=== PATIENT | male | born 1950 | race Caucasian/White ===

== ENCOUNTER 2019-08-27 13:36 | Inpatient (IN) ==
[2019-08-27] MEDS ORDERED: SODIUM CHLORIDE 0.9% 1000ML 1,000 ML IV SCH (15:00)
[2019-08-27 15:42] LABS: Basophils # (auto) 0.02 K/uL (0-0.2); Basophils % (auto) 0.1 %; Hematocrit (blood only) 47.9 % (42-52); Hemoglobin 16.2 g/dL (14.0-18.0); Immature Granulocytes # (auto) 0.11 K/uL (0.00-0.02); Immature Granulocytes % (auto) 0.5 %; Lymphocytes # (auto) 0.86 K/uL (1.2-3.4); Lymphocytes % (auto) 4.1 %; Mean Corpuscular Hemoglobin 32.9 pg (25-34); Mean Corpuscular Hgb Conc 33.8 g/dL (32-36); Mean Corpuscular Volume 97.4 fL (80-100); Mean Platelet Volume 10.3 fL (7.4-10.4); Monocytes # (auto) 1.04 K/uL (0.11-0.59); Neutrophils # (auto) 18.88 K/uL (1.4-6.5); Neutrophils % (auto) 90.3 %; Platelet Count 192 K/uL (130-400); RDW Coefficient of Variation 14.2 % (11.5-14.5); RDW Standard Deviation 50.5 fL (36.4-46.3); Red Blood Count 4.92 M/uL (4.7-6.1); White Blood Count 20.91 K/uL (4.8-10.8)
--- NOTE | 2019-08-27 15:46 | Emergency Department Note ---
Entered by Onelia Velarde acting as a scribe for Margarito Yousif DO History of Present Illness General Chief complaint: Abdominal Pain Stated complaint: ABDOMINAL PAIN, PERHAPS GALL BLADDER, PCP REF Source: patient History of Present Illness Onset (ago): day(s) 1 (yesterday 399) Location: abdomen Pain Consistency: + other (worsening) Maximum Pain Intensity: 7 Quality: + other (abdominal pain ) Associated symptoms: + fever/chills, + nausea/vomiting and + other (+high blood count; -back pain ) The patient is a 69 year old male, with past medical history of hypertension and hyperlipidemia, who presents to the Emergency Room with complaints of worsening abdominal pain since 399 yesterday morning. The patient states the pain began with generalized abdominal pain that felt like hunger cramps. The following morning, the patient states he had toast with margarine with orange juice and coffee. The patient states he had a normal bowel movement, but he states he had an episode of nausea and one instance of dry heaving an hour after eating breakfast. Later on in the day, the patient states the pain became much more localized to his right upper quadrant. Over night, the patient states the pain in his right upper quadrant worsened. The patient reports he saw his PCP regarding symptoms this morning, where the patient states his blood count was twice the normal limit and he was referred to the ED. The patient also notes a fever, but he denies back pain. The patient notes family history of gall bladder issues. Home Medications Home Medications Medication Instructions Recorded Confirmed Type ASPIRIN 325 mg PO q3 hr PRN #0 08/16/16 History ATORVASTATIN (LIPITOR) 20 mg PO DAILY #0 tab 08/16/16 History Calcium Carbonate (Tums) 2 dose PO DAILY #0 08/16/16 History Flurazepam HCl 15 mg PO HS PRN #0 08/16/16 History LOSARTAN POTASSIUM (COZAAR) 100 mg PO DAILY #0 tab 08/16/16 History MECLIZINE HCL 1 tab PO TID PRN #0 tab 08/16/16 History MULTIPLE VITAMIN (MULTIVITAMINS) 1 tab PO DAILY #0 08/16/16 History Naproxen (Naprosyn) 500 mg PO BID #0 tab 08/16/16 History Pantoprazole (Protonix) 40 mg PO DAILY #0 10/03/16 History Allergies Allergy/AdvReac Type Severity Reaction Status Date / Time No Known Allergies Allergy Unverified 09/12/15 16:42 Past Med/Surg History Medical History Hyperlipidemia Hypertension Family History Other No significant family history Social History Preferred Language: Hungarian Feels Safe at Home: Yes Smoking Status: Never smoker Review of Systems See HPI for pertinent positives & negatives. and A total of 10 systems reviewed and were otherwise negative Physical Exam Vital Signs Vital Signs - 24 hr 08/27/19 13:57 08/27/19 15:36 08/27/19 16:00 Temperature 38.2 C H Temperature Source Oral Sepsis Recent Fever Within 48 Hours Yes Sepsis New/Unexplained Change in Mental Status No Sepsis Action Taken by Nursing No Action Required Pulse Rate 121 H Pulse Rate [Apical] 100 H Pulse Rhythm Regular Pulse Rhythm [Apical] Regular Pulse Strength Normal Pulse Strength [Apical] Normal Respiratory Rate 18 18 Respiratory Effort / Characteristics Non-Labored Spontaneous Non-Labored Spontaneous Respiratory Depth Normal Normal Respiratory Pattern Regular Regular Blood Pressure 158/85 H Blood Pressure [Right Arm] 149/81 H Blood Pressure Mean 109 Blood Pressure Mean [Right Arm] 103 Blood Pressure Position Sitting Blood Pressure Position [Right Arm] Lying Pulse Oximetry 98 96 96 Oxygen Delivery Method Room Air Room Air Room Air GENERAL: Patient is awake and alert. He is somewhat anxious appearing and appears to be uncomfortable. EYES: The conjunctivae are clear. The pupils are round and reactive. EARS, NOSE, MOUTH AND THROAT: The nose is without any evidence of any deformity. Mucous membranes are moist tongue is midline NECK: The neck is nontender and supple. RESPIRATORY: Normal respiratory effort is noted there is no evidence of wheezing rhonchi or rales CARDIOVASCULAR: Tachycardic rate with regular rhythm was noted. No definite murmurs noted. GASTROINTESTINAL: Abdomen is mildly distended and soft. There is significant right upper and right lower quadrant tenderness to palpation. Mild guarding is noted in the right upper quadrant. BACK: No midline tenderness or or step-off noted range of motion in flexion extension as well as rotation no signs of muscle spasm noted MUSCULOSKELETAL/EXTREMITIES: There is no evidence of gross deformity full range of motion is noted in the hips and shoulders SKIN: There is no obvious evidence of any rash. There are no petechiae, pallor or cyanosis noted. NEUROLOGIC: Patient is awake alert and oriented x3. Course 1500: Past medical records reviewed. The patient was evaluated in room A10. A complete history and physical exam was performed. 1630: I reevaluated and updated the patient on his case. 1700: I reviewed the patient's case with Dr. Cheung-Surgery. Dr. Cheung will further evaluate the patient in the operating room. Consultations Consultation #1: I reviewed the patient's case with Dr. Cheung-Surgery. Dr. Cheung will further evaluate the patient. Time: 17:00 Administered Medications Ioversol (Optiray 320 100ml) 93 ml IV ONCE PRN PRN Reason: Interaction Checking Stop: 08/31/19 16:19 Last Admin: 08/27/19 16:20 Dose: 93 ml Documented by: [id number] Discontinued Medications Sodium Chloride (Nss 1000ml) 1,000 mls @ 999 mls/hr IV .Q1H1M CHELA Stop: 08/27/19 16:00 Last Admin: 08/27/19 15:30 Dose: 999 mls/hr Documented by: [id number] Piperacillin Sod/Tazobactam Sod (Zosyn) 4.5 gm in 120 mls @ 240 mls/hr IV NOW ONE Stop: 08/27/19 16:52 Last Admin: 08/27/19 16:39 Dose: 240 mls/hr Documented by: [id number] Medical Decision Making Differential Diagnosis Differential diagnosis: Etiologies such as appendicitis, diverticulitis, PUD, biliary pathology, UTI, pancreatitis, obstruction, mesenteric ischemia, aortic pathology, infections, inflammatory bowel disease, renal colic, as well as others were entertained. Medical Records Attestation: I reviewed the patient's medical records. Home Medications Current Medication List: was personally reviewed by me Laboratory Data Attestation: I reviewed the patient's lab results. Result diagrams: 08/27/19 15:31 08/27/19 15:31 Lab Results 08/27/19 08/27/19 08/27/19 Range/Units 15:31 15:31 15:31 WBC 20.91 H (4.8-10.8) K/uL RBC 4.92 (4.7-6.1) M/uL Hgb 16.2 (14.0-18.0) g/dL Hct 47.9 (42-52) % MCV 97.4 (80-100) fL MCH 32.9 (25-34) pg MCHC 33.8 (32-36) g/dL RDW Std Deviation 50.5 H (36.4-46.3) fL RDW Coeff of Manuel 14.2 (11.5-14.5) % Plt Count 192 (130-400) K/uL MPV 10.3 (7.4-10.4) fL Immature Gran % (Auto) 0.5 % Neut % (Auto) 90.3 % Lymph % (Auto) 4.1 % Gaines % (Auto) 5.0 % Eos % (Auto) 0.0 % Baso % (Auto) 0.1 % Immature Gran # (Auto) 0.11 H (0.00-0.02) K/uL Neut # (Auto) 18.88 H (1.4-6.5) K/uL Lymph # (Auto) 0.86 L (1.2-3.4) K/uL Gaines # (Auto) 1.04 H (0.11-0.59) K/uL Eos # (Auto) 0.00 (0-0.5) K/uL Baso # (Auto) 0.02 (0-0.2) K/uL PT 10.9 (9.0-12.0) Seconds INR 1.1 (0.9-1.1) APTT 28.5 (21.0-31.0) Seconds PTT Ratio 1.1 Sodium 136 (136-145) mmol/L Potassium 3.9 (3.5-5.1) mmol/L Chloride 103 (98-107) mmol/L Carbon Dioxide 29 (21-32) mmol/L Anion Gap 4.0 (3-11) BUN 18 (7-18) mg/dl Creatinine 1.49 H (0.6-1.4) mg/dl Est Cr Clr Drug Dosing 42.8 ml/min Est GFR ( Amer) 55.5 Est GFR (Non-Af Amer) 47.9 BUN/Creatinine Ratio 11.8 (10-20) Glucose 134 H (70-99) mg/dl Calcium 10.6 H (8.5-10.1) mg/dl Total Bilirubin 2.6 H (0.2-1) mg/dl AST 17 (15-37) U/L ALT 27 (12-78) U/L Alkaline Phosphatase 68 (45-117) U/L Total Protein 8.6 H (6.4-8.2) gm/dl Albumin 4.0 (3.4-5.0) gm/dl Globulin 4.6 H (2.5-4.0) gm/dl Albumin/Globulin Ratio 0.9 (0.9-2) Lipase 43 L (73-393) U/L Imaging Data Radiologist's Impression: Radiology results as stated below per my review and the radiologist's interpretation: CT abd pelvis IV con only CLINICAL HISTORY: Right-sided abdominal pain COMPARISON STUDY: None. TECHNIQUE: The patient was scanned in a dynamic helical fashion during intravenous administration of 93 cc of Optiray 320 A dose lowering technique was utilized adhering to the principles of ALARA. CT DOSE: 284.23 mGy.cm FINDINGS: Lower chest: There are dependent opacities, likely atelectatic. Liver: The contrast-enhanced liver is normal in size, contour, and attenuation. There is no intrahepatic biliary ductal dilatation. The hepatic veins and portal veins are patent. Gallbladder: There is cholelithiasis. The gallbladder is distended. There is gallbladder wall edema. There is infiltration of the pericholecystic fat. The findings are indicative of acute cholecystitis. Spleen: Normal in size and attenuation. Pancreas: Unremarkable. Adrenal glands: Unremarkable. Kidneys: There is symmetric renal cortical enhancement. The kidneys are normal in size without hydronephrosis. Bowel: There are no transition zones to indicate bowel obstruction. There is no evidence of acute diverticulitis. There are no findings to indicate acute appendicitis. There is borderline gastric antral wall thickening. Peritoneum: There is no intraperitoneal free air or abdominal ascites. Vasculature: The abdominal aorta is normal in course and caliber. Adenopathy: None. Pelvic viscera: The prostate is enlarged. Skeletal structures: No destructive osseous lesions are seen. IMPRESSION: 1. Cholelithiasis, gallbladder wall thickening, gallbladder distention, and infiltration of the pericholecystic fat. These findings are highly suggestive of acute cholecystitis and clinical correlation in this regard is advocated 2. No evidence of bowel obstruction. No evidence of free air Blood Pressure Blood Pressure Findings: Elevated blood pressure Blood Pressure Disposition: further management by hospitalist MDM Narrative The patient is a 69-year-old male who presented to the emergency department for an evaluation of upper abdominal pain and fever. The patient has had upper abdominal pain for the last few days. He was initially seen by his primary care physician and had laboratory studies done. He was unable to have radiographic studies but because of his elevated white blood cell count and fever was told to come to the emergency department for further evaluation. The patient had right- sided abdominal pain on physical exam. He was guarding and it was difficult to determine if this was appendicitis versus cholecystitis. CT scan of the abdomen and pelvis was obtained. The patient was treated with IV fluids as well as IV antibiotics. I discussed the patient's laboratory and radiographic studies with him. Because of his symptoms I also discussed his case with the on-call general surgeon. They have agreed to evaluate the patient in the emergency department for further management disposition. The patient was agreeable to evaluation by the surgeon. Impression & Plan Acute cholecystitis, Abdominal pain, RUQ, Fever Discharge Plan Visit Data Chief Complaint: Abdominal Pain Stated Complaint: ABDOMINAL PAIN, PERHAPS GALL BLADDER, PCP REF ED Provider: Margarito Yousif Discharge Problem: Acute cholecystitis, Abdominal pain, RUQ, Fever Patient Disposition: Being Evaluated by Surgeon Forms Stand Alone Forms: Call Back Authorization, [facility] Prescriptions Prescriptions: No Action ASPIRIN 325 MG tablet 325 mg PO q3 hr PRN (Reason: Pain) Qty: 0 RF: 0 ATORVASTATIN (LIPITOR) 20 MG tablet 20 mg PO DAILY Qty: 0 RF: 0 Calcium Carbonate (Tums) 500 MG CHEWABLE TAB 2 dose PO DAILY Qty: 0 RF: 0 Flurazepam HCl 15 MG capsule 15 mg PO HS PRN (Reason: Insomnia) Qty: 0 RF: 0 LOSARTAN POTASSIUM (COZAAR) 100 MG tablet 100 mg PO DAILY Qty: 0 RF: 0 MECLIZINE HCL 25 MG tablet 1 tab PO TID PRN (Reason: Dizziness or Vertigo) Qty: 0 RF: 0 MULTIPLE VITAMIN (MULTIVITAMINS) 1 CAP capsule 1 tab PO DAILY Qty: 0 RF: 0 Naproxen (Naprosyn) 500 MG tablet 500 mg PO BID Qty: 0 RF: 0 Pantoprazole (Protonix) 40 MG tablet 40 mg PO DAILY Qty: 0 RF: 0 Referrals Referrals: Fernandez Jackson MD [Primary Care Provider] - Discharge Problem: Fever Qualifiers: Fever type: unspecified Qualified Code(s): R50.9 - Fever, unspecified The scribe's documentation has been prepared under my direction and personally reviewed by me in its entirety. I confirm that the note above accurately reflects all work, treatment, procedures, and medical decision making performed by me.
[2019-08-27 15:58] LABS: BUN Creatinine Ratio 11.8 (10-20); Calcium 10.6 mg/dl (8.5-10.1); Creatinine Clr Calc Pharmacy 42.8 ml/min; Est GFR (African American) 55.5; Est GFR (Non-African American) 47.9; Potassium 3.9 mmol/L (3.5-5.1)
[2019-08-27 16:01] LABS: Albumin Globulin Ratio 0.9 (0.9-2); Bilirubin,Total 2.6 mg/dl (0.2-1); Globulin 4.6 gm/dl (2.5-4.0); Total Protein 8.6 gm/dl (6.4-8.2)
[2019-08-27 16:07] LABS: INR 1.1 (0.9-1.1); Partial Thromboplastin Ratio 1.1; Partial Thromboplastin Time 28.5 Seconds (21.0-31.0); Prothrombin Time 10.9 Seconds (9.0-12.0)
[2019-08-27] MEDS ORDERED: IOVERSOL 100ml IV PRN (16:20)
[2019-08-27] MEDS ORDERED: PIPERACILLIN/TAZOBACTAM 4.5 GM/120 ML BAG IV ONE (16:23)
[2019-08-27] MEDS ORDERED: SODIUM CHLORIDE 0.9% 1000ML 1,000 ML IV ONE (16:23)
[2019-08-27] MEDS ORDERED: PIPERACILL/TAZOBAC CONSULT ACTIVE PRN ×2 (16:23→19:31)
--- NOTE | 2019-08-27 16:31 | CT Scan Report ---
CT abd pelvis IV con only CLINICAL HISTORY: Right-sided abdominal pain COMPARISON STUDY: None. TECHNIQUE: The patient was scanned in a dynamic helical fashion during intravenous administration of 93 cc of Optiray 320 A dose lowering technique was utilized adhering to the principles of ALARA. CT DOSE: 284.23 mGy.cm FINDINGS: Lower chest: There are dependent opacities, likely atelectatic. Liver: The contrast-enhanced liver is normal in size, contour, and attenuation. There is no intrahepa tic biliary ductal dilatation. The hepatic veins and portal veins are patent. Gallbladder: There is cholelithiasis. The gallbladder is distended. There is gallbladder wall edema. There is infiltration of the pericholecystic fat. The findings are indicative of acute cholecystitis. Spleen: Normal in size and attenuation. Pancreas: Unremarkable. Adrenal glands: Unremarkable. Kidneys: There is symmetric renal cortical enhancement. The kidneys are normal in size without hydron ephrosis. Bowel: There are no transition zones to indicate bowel obstruction. There is no evidence of acute div erticulitis. There are no findings to indicate acute appendicitis. There is borderline gastric antral wall thickening. Peritoneum: There is no intraperitoneal free air or abdominal ascites. Vasculature: The abdominal aorta is normal in course and caliber. Adenopathy: None. Pelvic viscera: The prostate is enlarged. Skeletal structures: No destructive osseous lesions are seen. IMPRESSION: 1. Cholelithiasis, gallbladder wall thickening, gallbladder distention, and infiltration of the peric holecystic fat. These findings are highly suggestive of acute cholecystitis and clinical correlation in this regard is advocated 2. No evidence of bowel obstruction. No evidence of free air Electronically signed by: Sai Levine M.D. 08/27/2019 4:29 PM
--- NOTE | 2019-08-27 17:22 | History & Physical Report ---
Date of Service August 27, 2019 Assessment & Plan (1) Acute cholecystitis: for laparoscopic cholecystectomy, possible open operation concern for necrotizing cholecystitis M/S tele postop , overnight Rec IV Zosyn We will ask the [facility] hospitalist to follow the patient History of Present Illness Primary Care Provider: Fernandez Jackson MD pt w/ persistent , worsening RUQ pain, fever, elev wbc CT showing evidence of acute cholecystitis- gb- distended, edema, sludge Pericholecystic fluid Allergies Allergy/AdvReac Type Severity Reaction Status Date / Time No Known Allergies Allergy Unverified 09/12/15 16:42 Home Medications Home Medications Medication Instructions Recorded Confirmed Type ASPIRIN 325 mg PO q3 hr PRN #0 08/16/16 History ATORVASTATIN (LIPITOR) 20 mg PO DAILY #0 tab 08/16/16 History Calcium Carbonate (Tums) 2 dose PO DAILY #0 08/16/16 History Flurazepam HCl 15 mg PO HS PRN #0 08/16/16 History LOSARTAN POTASSIUM (COZAAR) 100 mg PO DAILY #0 tab 08/16/16 History MECLIZINE HCL 1 tab PO TID PRN #0 tab 08/16/16 History MULTIPLE VITAMIN (MULTIVITAMINS) 1 tab PO DAILY #0 08/16/16 History Naproxen (Naprosyn) 500 mg PO BID #0 tab 08/16/16 History Pantoprazole (Protonix) 40 mg PO DAILY #0 08/16/16 History Past Med/Surg History Social History Preferred Language: Tajik Feels Safe at Home: Yes Smoking Status: Never smoker Review of Systems All systems reviewed & are unremarkable except as noted in HPI & below Physical Exam Physical Exam: RUQ tenderness Constitutional: well developed and well nourished; no acute distress Eyes: + anicteric sclerae Respiratory: normal respiratory effort; no respiratory distress Cardiovascular: Rate/Rhythm: regular rate Gastrointestinal (Abdomen): Percussion/Palpation: abdomen soft Musculoskeletal: Gait: normal gait Skin: no rashes, warm and dry Neurologic: awake Psychiatric: Orientation: alert Results & Data Vital Signs (Past 12 Hours) Vital Signs Temp Pulse Pulse Resp BP BP Pulse Ox 08/27/19 16:00 96 08/27/19 15:36 100 H 18 149/81 H 96 08/27/19 13:57 38.2 C H 121 H 18 158/85 H 98 I reviewed his CAT scan
[2019-08-27] MEDS ORDERED: MIDAZOLAM HCL 1 MG/ML 2ML VIAL ONE (17:24)
[2019-08-27] MEDS ORDERED: fentaNYL citrate 100 MCG/2 ML VIAL ONE ×2 (17:25→18:49)
[2019-08-27] MEDS ORDERED: ONDANSETRON INJ 2 MG/ML 2 ML VIAL ONE ×2 (17:27→19:21)
[2019-08-27] MEDS ORDERED: LIDOCAINE HCL 2% 2 ML VIAL/AMP(20MG/ML) INFIL ONE (17:27)
[2019-08-27] MEDS ORDERED: GLYCOPYRROLATE 0.2 MG/ML VIAL ONE (17:27)
[2019-08-27] MEDS ORDERED: ROCURONIUM BROMIDE 10 MG/ML 5 ML VIAL ONE (17:27)
[2019-08-27] MEDS ORDERED: NEOSTIGMINE METHYLSULFATE 5 MG/5 ML SYR ONE (17:27)
[2019-08-27] MEDS ORDERED: LARYING-O-JET KIT (LTA) ONE (17:27)
[2019-08-27] MEDS ORDERED: PROPOFOL IV EMULSION 10 MG/ML 20 ML VIAL IV ONE (17:27)
[2019-08-27] MEDS ORDERED: CONRAY 60% 50 ML VIAL ONE (17:42)
[2019-08-27] MEDS ORDERED: BUPIVACAINE 0.5 % 5 MG/1 ML MPF 30ML VIAL ONE (17:42)
[2019-08-27 17:54] LABS: Appearance Urine Clear (Clear); Bilirubin Urine Negative (Negative); Blood Urine Negative (Negative); Color Urine Yellow; Glucose Urine UA Negative (Negative); Ketones Urine Negative (Negative); Leukocyte Esterase Urine Negative (Negative); Nitrite Urine Negative (Negative); Protein Urine Negative (Negative); Specific Gravity Urine 1.042 (1.000-1.030); Urobilinogen Urine Negative (Negative); pH Urine 7.5 (4.5-7.5)
--- NOTE | 2019-08-27 17:56 | Anesthesiology Consultation ---
Date of Service August 27, 2019 Assessment & Plan (1) Encounter for pre-operative examination: Chart Review Chart Review: Acceptable Risk for Surgery and Patient NOT seen in Pre Admission Testing Consults Requested none ASA [id number] Proposed Anesthesia Anesthesia Type: General (RSI) Risk / Benefits Reviewed With: PT / POA / Parent / Guardian, Accepts Plan and Informed Consent Obtained History Surgery Operation Date: 08/27/19 09:25 Proposed Procedures p Laparoscopic Cholecystectomy - Ravin Cheung MD, FACS Height/Weight Height: 57 ft Weight: 62.9 kg Allergies Allergy/AdvReac Type Severity Reaction Status Date / Time No Known Allergies Allergy Unverified 09/12/15 16:42 Medications Home Medications Medication Instructions Recorded Confirmed Last Taken ASPIRIN 325 mg PO q3 hr PRN #0 08/16/16 Unknown ATORVASTATIN (LIPITOR) 20 mg PO DAILY #0 tab 08/16/16 Unknown Calcium Carbonate (Tums) 2 dose PO DAILY #0 08/16/16 Unknown Flurazepam HCl 15 mg PO HS PRN #0 08/16/16 Unknown LOSARTAN POTASSIUM (COZAAR) 100 mg PO DAILY #0 tab 08/16/16 Unknown MECLIZINE HCL 1 tab PO TID PRN #0 tab 08/16/16 Unknown MULTIPLE VITAMIN (MULTIVITAMINS) 1 tab PO DAILY #0 08/16/16 Unknown Naproxen (Naprosyn) 500 mg PO BID #0 tab 08/16/16 Unknown Pantoprazole (Protonix) 40 mg PO DAILY #0 08/16/16 Unknown Active Medications Generic Name Dose Route Start Last Admin Trade Name Freq PRN Reason Stop Dose Admin Ioversol 93 ml 08/27/19 16:20 08/27/19 16:20 Optiray 320 100ml IV 08/31/19 16:19 93 ml ONCE PRN Administration Interaction Checking NPO Date Last Intake of Fluids: 08/27/19 Time Last Intake of Fluids: 12:30 Date Last Intake of Solids: 08/27/19 Time Last Intake of Solids: 12:30 Last Intake of Solids Comment: Chicken Soup Past Medical History Medical History Hyperlipidemia Hypertension Exercise / Class Metabolic Activity II 4-5 Yardwork/Stairs/Walk up hill Past Family History Family History Other No significant family history Past Anesthesia History No Hx of Anesthesia Complications and No Family Hx of Anesthesia Complications History of PONV No Hx of PONV and No Hx of Motion Sickness Social History Smoking Status: Never smoker Physical Exam Vital Signs Last Vital Signs Temp 38.2 C H 08/27/19 13:57 Pulse 100 H 08/27/19 15:36 Resp 18 08/27/19 15:36 BP 149/81 H 08/27/19 15:36 Pulse Ox 96 08/27/19 16:00 ENMT Mouth: no dentition abnormality Thyromental Distance: > or= 3.5 Finger Breadths Mallampati Class: II Neck normal visual inspection Respiratory normal respiratory effort Auscultation: lungs clear to auscultation bilaterally Cardiovascular Rate/Rhythm: regular rate and regular rhythm Psychiatric Orientation: alert Testing Laboratory Results 08/27/19 15:31 08/27/19 15:31 PT 10.9 Seconds (9.0-12.0) 08/27/19 15:31 INR 1.1 (0.9-1.1) 08/27/19 15:31 APTT 28.5 Seconds (21.0-31.0) 08/27/19 15:31 Urine Color Yellow 08/27/19 17:05 Urine Appearance Clear (Clear) 08/27/19 17:05 Urine pH 7.5 (4.5-7.5) 08/27/19 17:05 Ur Specific [place] 1.042 (1.000-1.030) H 08/27/19 17:05 Urine Protein Negative (Negative) 08/27/19 17:05 Urine Glucose (UA) Negative (Negative) 08/27/19 17:05 Urine Ketones Negative (Negative) 08/27/19 17:05 Urine Nitrite Negative (Negative) 08/27/19 17:05 Ur Leukocyte Esterase Negative (Negative) 08/27/19 17:05
[2019-08-27] MEDS ORDERED: fentaNYL citrate 100 MCG/2 ML VIAL IV PRN (18:07)
[2019-08-27] MEDS ORDERED: ATROPINE SULFATE 0.1 MG/ML 10ML SYR IV PRN (18:07)
[2019-08-27] MEDS ORDERED: PROMETHAZINE HCL 6.25 MG in SODIUM CHLORIDE 0.9% 50 ML IV PRN (18:07)
[2019-08-27] MEDS ORDERED: ePHEDrine sulfate 50 MG/ML AMP IV PRN (18:07)
[2019-08-27] MEDS ORDERED: HYDROmorphone INJ 2 MG/ML SYR/VIAL IV PRN (18:07)
[2019-08-27] MEDS ORDERED: ONDANSETRON INJ 2 MG/ML 2 ML VIAL IV PRN ×2 (18:07→19:31)
[2019-08-27 18:59] LABS: iSTAT Creatinine 1.4 mg/dl (0.6-1.3); iSTAT Hemoglobin 17.7 g/dl (14.0-18.0); iSTAT Ionized Calcium 1.35 mmol/l (1.12-1.32)
[2019-08-27] MEDS ORDERED: KETOROLAC 30 MG/ML VIAL ONE (19:21)
--- NOTE | 2019-08-27 19:27 | Operative Report ---
PG Post Operative Report Pre & Post Diagnosis Operation Date: 08/27/19 18:25 Pre-Op Diagnosis: Acute Cholecystitis Post-Op Diagnosis: Acute Cholecystitis gangrenous cholecystitis, hydrops I identified the patient and participated in the time-out.: Yes Procedure Operation Date: 08/27/19 18:25 Actual Procedures p Laparoscopic Cholecystectomy - Ravin Cheung MD, FACS Surgeon Ravin Cheung MD, FACS Payment Analyst nurses Estimated Blood Loss 20 Findings Consistent with Post-Op Diagnosis Specimens gallbladder Description of Procedure see dictation I attest to the content of the Intraoperative Record and any orders documented therein. Any exceptions are noted below.
[2019-08-27] MEDS ORDERED: ACETAMINOPHEN 1,000 MG/100 ML VIAL IV ONE (19:28)
[2019-08-27] MEDS ORDERED: PROMETHAZINE HCL 12.5 MG in SODIUM CHLORIDE 0.9% 50 ML IV PRN (19:31)
[2019-08-27] MEDS ORDERED: HYDROmorphone INJ 1 MG/ML SYRINGE IV PRN (19:31)
[2019-08-27] MEDS ORDERED: HYDROCODONE/ACETAMOPHEN 5/325MG TAB PO PRN (19:31)
[2019-08-27] MEDS ORDERED: HYDROmorphone INJ 0.5 MG/0.5 ML SYR IV PRN (19:31)
[2019-08-27] MEDS ORDERED: PROMETHAZINE HCL 25 MG in SODIUM CHLORIDE 0.9% 50 ML IV PRN (19:31)
--- NOTE | 2019-08-27 20:00 | Operative Report ---
DATE OF OPERATION: 08/27/2019 NAME OF OPERATION: Laparoscopic cholecystectomy. PREOPERATIVE DIAGNOSIS: Acute cholecystitis. POSTOPERATIVE DIAGNOSES: Acute gangrenous cholecystitis with bilious ascites and hydrops. STAFF SURGEON: Ravin Cheung MD. ANESTHESIA: General. DESCRIPTION OF PROCEDURE: The patient was brought in the operating room and placed on the operating table in supine position. He was somewhat difficult to intubate and required fiberoptic. His abdomen was prepped and draped in usual fashion. Pneumatic stockings and orogastric tube were placed. Incision was made above the umbilicus, carrying dissection down identifying the fascia, placing a Veress needle producing pneumoperitoneum. An 11 mm port placed at this level and under visualization, three 5 mm ports placed, 1 cephalad and 2 laterally. The omentum was adherent to the gallbladder. It was taken down. The gallbladder was gangrenous. There was bilious ascites. This was aspirated. The gallbladder was then attempted to be decompressed, but apparently it was full of sludge. There was some clear contents aspirated initially indicating hydrops. The gallbladder was severely inflamed. Dissection was carried out to the yon hepatis, identifying the cystic duct, right hepatic artery, cystic artery. The cystic artery was clipped and transected. Interestingly, it was to the right of the yon hepatis instead of its usual position. Cystic duct was clipped and transected and the gallbladder was dissected away from the right hepatic artery. It was severely inflamed, edematous and necrotic. There was some spillage of bilious material with some gravel, majority of which was placed into an Endobag, which was placed into the abdomen. The gallbladder was then dissected away from the liver, placed into the Endobag. After appropriate irrigation and hemostasis, a #15 round Giovany-Loya drain was placed through the lateral 5 mm port site into the subhepatic space, secured to the skin using 3-0 nylon suture. All ports were then removed using a 5 mm scope, the gallbladder was removed through the umbilical site. I did have to increase the size of the fascial defect to remove the gallbladder because of its size. The fascia at the umbilicus closed using 0 PDS suture. Skin reapproximated using 4-0 nylon suture. The drain was secured using a 3-0 nylon suture. The patient was then transferred to recovery area in stable condition. I attest to the content of the Intraoperative Record and any orders documented therein. Any exception s are noted below.
[2019-08-27] MEDS: SODIUM CHLORIDE 0.9% 1000ML 1,000 ML IV SCH (20:43)
--- NOTE | 2019-08-27 21:16 | Consultation ---
Date of Consultation August 27, 2019 Assessment & Plan (1) Acute cholecystitis: (2) Fever: Post op day# 0 S/P Cholecystectomy by Dr Cheung ER presentation pt mets SIRS criteria with fever, tachycardia, WBC: 20. Pt received IVF and IV Zosyn -Obtain lactate -Obtain blood cultures -pain management per general surgery -wound management per general surgery -incentive spirometry -monitor CBC, BMP (3) HTN (hypertension): On losartan at home (4) Dyslipidemia: On atorvastatin at home (5) GERD (gastroesophageal reflux disease): On PPI at home Pt was seen and care coordinated with Dr Hendrickson. See addendum for Assessment and Plan. Supervising Physician Co-Signing Physician Notes IM ATTENDING : Patient seen and examined. History obtained from patient and records. Preceding documentation by Ms. Julia Gibson PA-C reviewed. In addition : Postop chest x-ray report as follows: 1. Mild volume overload. 2. Bibasilar opacities greater on the right, possibly extensive atelectasis. Aspiration or infection considered less likely. 3. Underlying right pleural effusion not excluded. Patient denies chest pain, S OB. Final Assessment and Recommendations as follows : Sepsis secondary to acute cholecystitis status post surgery ARF secondary to clinical dehydration Pulmonary congestion secondary to fluid overload HTN, stable Hyperglycemia rule out DM Hypercalcemia, notably present on review of all outpatient chemistries since 2016 Agree with Zosyn Hold losartan for now until creatinine back to baseline Hold IV fluid given fluid overload, may need Lasix if patient develops respiratory distress overnight Check hemoglobin A1c Check phosphorus level, intact PTH, may need outpatient Nephrology referral for hypercalcemia Agree with Heparin subcu for DVT prophylaxis Thank you very much for this consultation. Dr. Alvarez will follow patient's progress. : History of Present Illness Reason for Consultation: Post op medical management Attending Physician: Ravin Cheung MD, FACS History of Present Illness Pt is 69 y/o M with PMH HTN, dyslipidemia, GERD, chronic back pain seen in medical consultation S/P cholecystectomy for acute cholecystitis. Pt reports yesterday started with upper abdominal pain and reported worsening today and fever today. Had presented to ER and found to be febrile, tachycardic and had leukocytosis, and found to have acute cholecystitis and was taken to OR. Post op pt reports no current pain, just feels tired. Reports BM yesterday. Denies any current nausea or vomiting. Denies HERZOG, dizziness, syncope, vision changes, neck pain, CP, SOB, orthopnea, palpitations, cough, sore throat, choking, otalgia, rhinorrhea, paresthesias, weakness, extremity weakness, extremity edema, rashes, urinary symptoms. Allergies Allergy/AdvReac Type Severity Reaction Status Date / Time No Known Allergies Allergy Unverified 09/12/15 16:42 Home Medications Home Medications Medication Instructions Recorded Confirmed Type aspirin 325 mg PO DAILY PRN 08/27/19 08/27/19 History atorvastatin 20 mg PO PM 08/27/19 08/27/19 History flurazepam 15 mg PO HS PRN 08/27/19 08/27/19 History losartan 100 mg PO PM 08/27/19 08/27/19 History multivitamin 1 tab PO DAILY 08/27/19 08/27/19 History naproxen 500 mg PO BID PRN 08/27/19 08/27/19 History pantoprazole 40 mg PO PM 08/27/19 08/27/19 History Patient History Medical History Chronic back pain (Chronic) GERD (gastroesophageal reflux disease) (Chronic) HTN (hypertension) (Chronic) Dyslipidemia (Chronic) Family History Other Coronary heart disease Hypertension Social History Preferred Language: Armenian Communication Ability: Effective Public Address Systems Mechanic Required: No Beliefs That Will Affect Care: None Current Living Situation: Spouse Feels Safe at Home: Yes Safety Concerns: Feels Safe At This Time Smoking Status: Never smoker Hx Alcohol Use: Yes Hx Substance Use: No Review of Systems Review of Systems: All systems reviewed & are unremarkable except as noted in HPI & below Physical Exam Physical Exam: General: no distress, WDWN Head: normocephalic, atraumatic Eyes: conjunctiva non-injected, anicteric ENT: normal inspection external ears, nose, mucous membranes moist Neck: supple, trachea midline Lungs: clear, no respiratory distress, no wheezing/rhonchi/rales CV: RRR, no murmur,no pretibial edema Abd: normal BS, soft, +dressing to abdomen is dry and intact, MAMIE drain in place Ext: no cyanosis, no calf tenderness Neuro: A&O x 3, no focal deficits noted, normal affect Skin: warm, dry Results & Data Vital Signs (Past 12 Hours) Vital Signs Temp Pulse Pulse Pulse Resp BP BP 08/27/19 20:53 36.8 C 85 20 111/72 08/27/19 20:51 37.3 C 82 16 08/27/19 20:37 36.8 C 85 20 131/80 08/27/19 20:00 86 18 08/27/19 19:50 87 16 08/27/19 19:40 36.1 C L 106 H 16 08/27/19 17:45 37.4 C 102 H 32 H 08/27/19 16:00 08/27/19 15:36 100 H 18 08/27/19 13:57 38.2 C H 121 H 18 158/85 H BP Pulse Ox 08/27/19 20:53 96 08/27/19 20:51 129/76 98 08/27/19 20:37 96 08/27/19 20:00 144/81 H 97 08/27/19 19:50 162/77 H 97 08/27/19 19:40 173/93 H 96 08/27/19 17:45 156/82 H 96 08/27/19 16:00 96 08/27/19 15:36 149/81 H 96 08/27/19 13:57 98 Laboratory Results Short CBC 08/27/19 Range/Units 15:31 WBC 20.91 H (4.8-10.8) K/uL Hgb 16.2 (14.0-18.0) g/dL Hct 47.9 (42-52) % Plt Count 192 (130-400) K/uL BMP 08/27/19 15:31 Sodium 136 Potassium 3.9 Chloride 103 Carbon Dioxide 29 BUN 18 Creatinine 1.49 H Glucose 134 H Calcium 10.6 H Liver Function 08/27/19 Range/Units 15:31 Total Bilirubin 2.6 H (0.2-1) mg/dl AST 17 (15-37) U/L ALT 27 (12-78) U/L Alkaline Phosphatase 68 (45-117) U/L Albumin 4.0 (3.4-5.0) gm/dl Urine 08/27/19 Range/Units 17:05 Urine Color Yellow Urine Appearance Clear (Clear) Urine pH 7.5 (4.5-7.5) Ur Specific [place] 1.042 H (1.000-1.030) Urine Protein Negative (Negative) Urine Glucose (UA) Negative (Negative) Diagnostic Findings CT ABD/PELVIS: IMPRESSION: 1. Cholelithiasis, gallbladder wall thickening, gallbladder distention, and infiltration of the pericholecystic fat. These findings are highly suggestive of acute cholecystitis and clinical correlation in this regard is advocated 2. No evidence of bowel obstruction. No evidence of free air (1) Fever Fever type: unspecified Qualified Code(s): R50.9 - Fever, unspecified
[2019-08-27 21:28] LABS: Magnesium 1.9 mg/dl (1.8-2.4); Thyroid Stimulating Hormone 0.936 uIu/ml (0.300-4.500)
--- NOTE | 2019-08-27 22:30 | XRay Report ---
XR chest 1V portable CLINICAL HISTORY: 69 years-old Male presenting with tachypnea. TECHNIQUE: Portable upright AP view of the chest was obtained. COMPARISON: None. FINDINGS: Cardiomediastinal silhouette normal. Mild pulmonary vascular prominence. Bibasilar opacities greater on the right. Trace pleural effusion not excluded on the right. No large pneumothorax. Osseous struct ures normal. Several external leads overlie the thorax and upper abdomen degrading evaluation of thes e regions. IMPRESSION: 1. Mild volume overload. 2. Bibasilar opacities greater on the right, possibly extensive atelectasis. Aspiration or infection considered less likely. 3. Underlying right pleural effusion not excluded. Electronically signed by: Augusto El M.D. 08/27/2019 10:28 PM
[2019-08-27] MEDS: PIPERACILLIN/TAZOBACTAM 3.375 GM in DEXTROSE 5% 100 ML IV SCH (22:33)
--- NOTE | 2019-08-27 22:55 | Anesthesiology Progress Note ---
Date of Service August 27, 2019 Anesthesia Post Procedure Vital Signs Vital Signs: Temp Pulse Pulse Pulse Resp BP BP 08/27/19 22:48 36.9 C 90 18 101/64 08/27/19 22:03 84 08/27/19 21:45 36.8 C 93 H 18 08/27/19 21:17 36.9 C 83 18 08/27/19 20:53 36.8 C 85 20 111/72 08/27/19 20:51 37.3 C 82 16 08/27/19 20:37 36.8 C 85 20 131/80 08/27/19 20:00 86 18 08/27/19 19:50 87 16 08/27/19 19:40 36.1 C L 106 H 16 08/27/19 17:45 37.4 C 102 H 32 H 08/27/19 16:00 08/27/19 15:36 100 H 18 08/27/19 13:57 38.2 C H 121 H 18 158/85 H BP Pulse Ox 08/27/19 22:48 98 08/27/19 22:03 08/27/19 21:45 108/68 97 08/27/19 21:17 113/75 96 08/27/19 20:53 96 08/27/19 20:51 129/76 98 08/27/19 20:37 96 08/27/19 20:00 144/81 H 97 08/27/19 19:50 162/77 H 97 08/27/19 19:40 173/93 H 96 08/27/19 17:45 156/82 H 96 08/27/19 16:00 96 08/27/19 15:36 149/81 H 96 08/27/19 13:57 98 Pain Intensity Abdomen: Pain Intensity: 3 Transfer of Care Handoff Completed per policy Notes Mental Status: alert / awake / arousable Patient Amnestic to Procedure: Yes Nausea / Vomiting: adequately controlled Pain: adequately controlled Airway Patency, RR, SpO2: stable & adequate BP & HR: stable & adequate Hydration State: stable & adequate Anesthetic Complications: no major complications apparent, see Notes below and Pt Satisfied with anesthetic care Notes: Unanticipated difficult intubation encountered after induction. Easy to mask ventilate. Please see difficult airway note for details.
[2019-08-27] MEDS ORDERED: POTASSIUM PHOS 3 MMOL/1 ML INFUSION IV STA (23:48)
[2019-08-28] MEDS ORDERED: POTASSIUM PHOSPHATE 30 MMOL in SODIUM CHLORIDE 0.9% 500 ML IV ONE (00:15)
[2019-08-28] MEDS: HYDROCODONE/ACETAMOPHEN 5/325MG TAB PO PRN ×2 (02:27→21:08)
[2019-08-28] MEDS: PIPERACILLIN/TAZOBACTAM 3.375 GM in DEXTROSE 5% 100 ML IV SCH ×3 (05:25→22:08)
[2019-08-28 06:02] LABS: Hematocrit (blood only) 37.7 % (42-52); Hemoglobin 12.4 g/dL (14.0-18.0); Immature Granulocytes # (auto) 0.03 K/uL (0.00-0.02); Immature Granulocytes % (auto) 0.2 %; Lymphocytes # (auto) 0.33 K/uL (1.2-3.4); Lymphocytes % (auto) 2.2 %; Mean Corpuscular Hgb Conc 32.9 g/dL (32-36); Mean Corpuscular Volume 97.2 fL (80-100); Monocytes # (auto) 0.48 K/uL (0.11-0.59); Monocytes % (auto) 3.1 %; Neutrophils # (auto) 14.48 K/uL (1.4-6.5); Neutrophils % (auto) 94.5 %; Platelet Count 172 K/uL (130-400); RDW Coefficient of Variation 14.3 % (11.5-14.5); RDW Standard Deviation 51.1 fL (36.4-46.3); Red Blood Count 3.88 M/uL (4.7-6.1); White Blood Count 15.32 K/uL (4.8-10.8)
--- NOTE | 2019-08-28 06:15 | Progress Note ---
Date of Service August 28, 2019 Assessment & Plan (1) Gangrenous cholecystitis: s/p lap kandis- drain placement- had gangrenous cholecystitis on adm adv diet, cont IV atbx, leave drain- pt will need at least 3 days IV atbx ambulate, check labs Results & Data Vital Signs (Past 12 Hours) Vital Signs Temp Pulse Pulse Pulse Pulse Resp BP 08/28/19 04:41 37.2 C 91 H 20 116/71 08/28/19 04:00 36.9 C 88 18 08/28/19 00:00 77 08/27/19 23:22 37.0 C 86 19 08/27/19 22:48 36.9 C 90 18 101/64 08/27/19 22:03 84 08/27/19 21:45 36.8 C 93 H 18 08/27/19 21:17 36.9 C 83 18 08/27/19 20:53 36.8 C 85 20 111/72 08/27/19 20:51 37.3 C 82 16 08/27/19 20:37 36.8 C 85 20 131/80 08/27/19 20:00 86 18 08/27/19 19:50 87 16 08/27/19 19:40 36.1 C L 106 H 16 BP Pulse Ox 08/28/19 04:41 94 08/28/19 04:00 126/85 93 08/28/19 00:00 08/27/19 23:22 105/65 96 08/27/19 22:48 98 08/27/19 22:03 08/27/19 21:45 108/68 97 08/27/19 21:17 113/75 96 08/27/19 20:53 96 08/27/19 20:51 129/76 98 08/27/19 20:37 96 08/27/19 20:00 144/81 H 97 08/27/19 19:50 162/77 H 97 08/27/19 19:40 173/93 H 96 PG Care Time/CCT Total # of Minutes Spent Total Time Spent with Patient: Total time spent is greater than 50% in coordination of care (as documented) at patient's floor/unit and/or counseling patient:
[2019-08-28 06:19] LABS: Estimated Average Glucose 123 mg/dl; Hemoglobin A1C 5.9 % (4.5-5.6)
[2019-08-28 06:24] LABS: Albumin Globulin Ratio 0.7 (0.9-2); Albumin Level 2.6 gm/dl (3.4-5.0); BUN Creatinine Ratio 13.6 (10-20); Bilirubin Direct 0.4 mg/dl (0-0.2); Bilirubin,Total 2.4 mg/dl (0.2-1); Calcium 8.8 mg/dl (8.5-10.1); Creatinine Clr Calc Pharmacy 47.2 ml/min; Est GFR (African American) 62.5; Est GFR (Non-African American) 53.9; Globulin 3.7 gm/dl (2.5-4.0); Phosphorus 3.3 mg/dl (2.5-4.9); Potassium 4.4 mmol/L (3.5-5.1); Total Protein 6.3 gm/dl (6.4-8.2)
[2019-08-28] MEDS: DOCUSATE SODIUM/SENNA 50/8.6MG TAB PO SCH ×2 (08:57→21:07)
[2019-08-28] MEDS: ATORVASTATIN 20 MG TAB PO SCH (08:57)
[2019-08-28] MEDS: PANTOprazole 40 MG TAB PO SCH (08:57)
[2019-08-28] MEDS: HEPARIN SOD 5,000 UNIT/0.5 ML VIAL SQ SCH ×2 (08:58→21:08)
[2019-08-28] MEDS ORDERED: LOSARTAN POTASSIUM 50 MG TAB PO SCH ×2 (09:00→21:00)
--- NOTE | 2019-08-28 10:35 | Hospitalist Progress Note ---
Date of Service August 28, 2019 Assessment & Plan (1) Sepsis: (2) Acute cholecystitis: -Presented to ED with abdominal pain and found to be febrile, tachycardic, WBC 20K -CT ABD/pelvis suggestive of acute cholecystitis -Postop day #1 S/P laparoscopic cholecystectomy by Dr. Cheung; gallbladder was found to be gangrenous -Sepsis has resolved; WBC now 15 K, no longer febrile or tachycardic -Blood cultures pending -Continue IV Zosyn -Drain output to date 170 cc -Further management as per general surgery (3) KAMI (acute kidney injury): -Baseline creatinine 1.1-1.2 -1.49 on presentation -> 1.35 today -Likely prerenal nature due to acute illness/sepsis -Continue IVF, hold losartan (4) HTN (hypertension): -BP controlled/borderline low at times -will hold losartan for now due to borderline low BPs and mildly elevated creatinine (5) Dyslipidemia: -Continue atorvastatin (6) GERD (gastroesophageal reflux disease): -Continue PPI (7) DVT prophylaxis: -SQ heparin as per surgery Supervising Physician Co-Signing Physician Notes Pt was seen and examined. Agreed with Naomi BRYANT exam, assessment and plan. 69 y/o M with PMH HTN, dyslipidemia, GERD, chronic back pain seen in medical consultation S/P day 1 cholecystectomy for acute cholecystitis. No post-op complication. Pt said that pain control. Continue IV abx with Zosyn. Incentive spirometry. Monitor H/H. Will continue monitor closely. MD Kim Subjective Patient seen and examined. Resting in bed, no acute distress. Tolerated regular breakfast this morning without difficulty. Having some incisional pain however controlled. No nausea or vomiting. Denies chest pain shortness of breath. No lightheadedness or dizziness. Urinating without difficulty. No flatus or bowel movement yet. Physical Exam Constitutional: no acute distress Resting in bed Respiratory: normal respiratory effort; no respiratory distress Auscultation: + diminished lung sounds Cardiovascular: Rate/Rhythm: regular rate and regular rhythm Vessels: normal peripheral pulses Extremities: no edema Gastrointestinal (Abdomen): Inspection/Auscultation: + abnormal bowel sounds (Hypoactive) Percussion/Palpation: abdomen soft; abdomen nontender Surgical dressing dry and intact, drain in place draining serosanguineous drainage Psychiatric: Orientation: alert and oriented x 3 Results & Data Vital Signs (Past 12 Hours) Vital Signs Temp Pulse Pulse Pulse Resp BP BP 08/28/19 06:52 36.7 C 83 18 124/71 08/28/19 04:41 37.2 C 91 H 20 116/71 08/28/19 04:00 36.9 C 88 18 126/85 08/28/19 00:00 77 08/27/19 23:22 37.0 C 86 19 105/65 08/27/19 22:48 36.9 C 90 18 101/64 Pulse Ox 08/28/19 06:52 94 08/28/19 04:41 94 08/28/19 04:00 93 08/28/19 00:00 08/27/19 23:22 96 08/27/19 22:48 98 Laboratory Results Short CBC 08/27/19 08/28/19 Range/Units 15:31 05:28 WBC 20.91 H 15.32 H (4.8-10.8) K/uL Hgb 16.2 12.4 L D (14.0-18.0) g/dL Hct 47.9 37.7 L (42-52) % Plt Count 192 172 (130-400) K/uL BMP 08/27/19 08/28/19 15:31 05:28 Sodium 136 138 Potassium 3.9 4.4 Chloride 103 108 H Carbon Dioxide 29 24 BUN 18 18 Creatinine 1.49 H 1.35 Glucose 134 H 158 H Calcium 10.6 H 8.8 D Liver Function 08/27/19 08/28/19 Range/Units 15:31 05:28 Total Bilirubin 2.6 H 2.4 H (0.2-1) mg/dl Direct Bilirubin 0.4 H (0-0.2) mg/dl AST 17 36 (15-37) U/L ALT 27 40 (12-78) U/L Alkaline Phosphatase 68 46 (45-117) U/L Albumin 4.0 2.6 L (3.4-5.0) gm/dl Urine 08/27/19 Range/Units 17:05 Urine Color Yellow Urine Appearance Clear (Clear) Urine pH 7.5 (4.5-7.5) Ur Specific [place] 1.042 H (1.000-1.030) Urine Protein Negative (Negative) Urine Glucose (UA) Negative (Negative)
[2019-08-28] MEDS: SODIUM CHLORIDE 0.9% 1000ML 1,000 ML IV SCH (11:05)
[2019-08-28] MEDS ORDERED: ATORVASTATIN 20 MG TAB PO SCH (21:00)
[2019-08-28] MEDS ORDERED: PANTOprazole 40 MG TAB PO SCH (21:00)
[2019-08-29] MEDS: PIPERACILLIN/TAZOBACTAM 3.375 GM in DEXTROSE 5% 100 ML IV SCH ×3 (05:49→22:19)
[2019-08-29 06:18] LABS: Hematocrit (blood only) 36.2 % (42-52); Hemoglobin 11.9 g/dL (14.0-18.0); Mean Corpuscular Hemoglobin 31.9 pg (25-34); Mean Corpuscular Hgb Conc 32.9 g/dL (32-36); Mean Corpuscular Volume 97.1 fL (80-100); Mean Platelet Volume 10.4 fL (7.4-10.4); Platelet Count 186 K/uL (130-400); Red Blood Count 3.73 M/uL (4.7-6.1); White Blood Count 12.87 K/uL (4.8-10.8)
--- NOTE | 2019-08-29 06:39 | Progress Note ---
Date of Service August 29, 2019 Assessment & Plan (1) Gangrenous cholecystitis: no N/V- no flatus, bm - has bs min pain, vitals stable cont IV atbx today- possible d/c tomorrow will d/c on po atbx, drain, [place] Results & Data Vital Signs (Past 12 Hours) Vital Signs Temp Pulse Resp BP Pulse Ox 08/28/19 23:43 36.7 C 86 16 119/73 93 PG Care Time/CCT Total # of Minutes Spent Total Time Spent with Patient: Total time spent is greater than 50% in coordination of care (as documented) at patient's floor/unit and/or counseling patient:
[2019-08-29 06:46] LABS: BUN Creatinine Ratio 18.1 (10-20); Calcium 9.3 mg/dl (8.5-10.1); Est GFR (African American) 69.3; Est GFR (Non-African American) 59.8; Potassium 3.8 mmol/L (3.5-5.1)
[2019-08-29] MEDS: HEPARIN SOD 5,000 UNIT/0.5 ML VIAL SQ SCH ×2 (09:32→21:37)
[2019-08-29] MEDS: ATORVASTATIN 20 MG TAB PO SCH (09:32)
[2019-08-29] MEDS: PANTOprazole 40 MG TAB PO SCH (09:32)
[2019-08-29] MEDS: DOCUSATE SODIUM/SENNA 50/8.6MG TAB PO SCH ×2 (09:37→21:37)
[2019-08-29] MEDS: MAGNESIUM HYDROXIDE SUSP 30 ML UDC PO SCH ×2 (09:37→21:35)
--- NOTE | 2019-08-29 11:23 | Hospitalist Progress Note ---
Date of Service August 29, 2019 Assessment & Plan (1) Sepsis: (2) Acute cholecystitis: -Presented to ED with abdominal pain and found to be febrile, tachycardic, WBC 20K -CT ABD/pelvis suggestive of acute cholecystitis -Postop day #2 S/P laparoscopic cholecystectomy by Dr. Cheung; gallbladder was found to be gangrenous -Sepsis has resolved; WBC 20K -> 15K -> 12.8K, no longer febrile or tachycardic -Blood cultures negative -Continue IV Zosyn -Drain output to date 220 cc -Per general surgery, plan to discharge tomorrow with drain in place and p.o. antibiotics (3) KAMI (acute kidney injury): -Resolved -Baseline creatinine 1.1-1.2 -1.49 on presentation -> 1.35 -> 1.2 today -Likely prerenal nature due to acute illness/sepsis -Received IVF, losartan was held (4) HTN (hypertension): -Losartan initially held for borderline low BPs and KAMI -KAMI now resolved and BP improved, will resume losartan (5) Dyslipidemia: -Continue atorvastatin (6) GERD (gastroesophageal reflux disease): -Continue PPI (7) DVT prophylaxis: -SQ heparin as per surgery Supervising Physician Co-Signing Physician Notes Pending addendum The patient was seen and examined in medical floor He is status post laparoscopic cholecystectomy, POD #2 Complaints of abdominal discomfort with pain Bowel has not moved to Otherwise stable On examination No apparent distress at rest Hemodynamically stable Chest clear- Abdomen-distended, soft, tender with sluggish bowel sound Heart-regular Extremities-no edema His labs and imaging studies reviewed Medically stable Agree with assessment and plan as outlined above by Naomi Roper Subjective Patient seen and examined. Resting in bed, no acute distress. Pain is well controlled. Tolerating regular diet. No nausea. Passing flatus however no bowel movement. Denies lightheadedness and dizziness. Physical Exam Constitutional: no acute distress Resting in bed Respiratory: normal respiratory effort, lungs clear to auscultation Cardiovascular: Rate/Rhythm: regular rate and regular rhythm Vessels: normal peripheral pulses Extremities: no edema Gastrointestinal (Abdomen): Inspection/Auscultation: normal bowel sounds Percussion/Palpation: abdomen soft; abdomen nontender Surgical dressings intact, some staining noted around MAMIE dressing, MAMIE remains in place draining serosanguineous drainage Psychiatric: Orientation: alert and oriented x 3 Results & Data Vital Signs (Past 12 Hours) Vital Signs Temp Pulse Resp BP Pulse Ox 08/29/19 07:01 36.7 C 79 16 135/76 94 08/28/19 23:43 36.7 C 86 16 119/73 93 Laboratory Results Short CBC 08/29/19 Range/Units 05:31 WBC 12.87 H (4.8-10.8) K/uL Hgb 11.9 L (14.0-18.0) g/dL Hct 36.2 L (42-52) % Plt Count 186 (130-400) K/uL BMP 08/29/19 05:31 Sodium 140 Potassium 3.8 Chloride 109 H Carbon Dioxide 26 BUN 22 H Creatinine 1.24 Glucose 117 H Calcium 9.3
[2019-08-29] MEDS: HYDROCODONE/ACETAMOPHEN 5/325MG TAB PO PRN (21:37)
[2019-08-30] MEDS: PIPERACILLIN/TAZOBACTAM 3.375 GM in DEXTROSE 5% 100 ML IV SCH (05:52)
[2019-08-30 06:25] LABS: Hematocrit (blood only) 36.1 % (42-52); Hemoglobin 12.6 g/dL (14.0-18.0); Mean Corpuscular Hemoglobin 33.3 pg (25-34); Mean Corpuscular Hgb Conc 34.9 g/dL (32-36); Mean Corpuscular Volume 95.5 fL (80-100); Mean Platelet Volume 9.7 fL (7.4-10.4); Platelet Count 233 K/uL (130-400); RDW Coefficient of Variation 13.9 % (11.5-14.5); RDW Standard Deviation 48.2 fL (36.4-46.3); Red Blood Count 3.78 M/uL (4.7-6.1); White Blood Count 9.39 K/uL (4.8-10.8)
[2019-08-30 07:09] LABS: BUN Creatinine Ratio 12.9 (10-20); Creatinine Clr Calc Pharmacy 58.8 ml/min; Est GFR (African American) 76.7; Est GFR (Non-African American) 66.2; Potassium 3.7 mmol/L (3.5-5.1)
--- NOTE | 2019-08-30 07:29 | Discharge Summary ---
PRINCIPAL DIAGNOSIS: Necrotizing/gangrenous cholecystitis. PROCEDURES: The patient underwent laparoscopic cholecystectomy with drainage. HISTORY OF PRESENT ILLNESS AND HOSPITAL COURSE: The patient is a 69-year-old male presenting to the Emergency Room with acute abdominal pain, found with acute cholecystitis. He was taken to the operating room where he underwent laparoscopic cholecystectomy showing severe gangrenous cholecystitis with bilious ascites and hydrops of the gallbladder. He did require a drain placement. He has done relatively well and is passing flatus. Pain is controlled. He was felt stable for discharge home on oral antibiotics to be followed in the surgical clinic next week.
--- NOTE | 2019-08-30 09:07 | Hospitalist Progress Note ---
Date of Service August 30, 2019 Assessment & Plan (1) Sepsis: (2) Acute cholecystitis: -Presented to ED with abdominal pain and found to be febrile, tachycardic, WBC 20K -CT ABD/pelvis suggestive of acute cholecystitis -Postop day #3 s/p laparoscopic cholecystectomy by Dr. Cheung; gallbladder was found to be gangrenous -Sepsis has resolved; WBC 20K -> 15K -> 12.8K, no longer febrile or tachycardic -Blood cultures negative -Discharged today gen surg today with drain in place and p.o. antibiotics (3) KAMI (acute kidney injury): -Resolved -Baseline creatinine 1.1-1.2 -1.49 on presentation -> 1.35 -> 1.2 today -Likely prerenal nature due to acute illness/sepsis -Received IVF, losartan was held (4) HTN (hypertension): -Losartan initially held for borderline low BPs and KAMI -KAMI now resolved and BP improved, will resume losartan (5) Dyslipidemia: -Continue atorvastatin (6) GERD (gastroesophageal reflux disease): -Continue PPI (7) DVT prophylaxis: -SQ heparin as per surgery Patient seen in collaboration with Dr. Roper. Please see addendum. Supervising Physician Co-Signing Physician Notes Attending addendum The patient was seen and examined in medical floor He has been feeling much better today He has not moved his bowels yet but has been passing flatus Denies any chest pain and/or palpitation Will be discharged home this afternoon For examination Hemodynamically stable Chest-clear Heart-S1-S2, regular Abdomen-mildly distended, soft and tender, bowel sounds present Medically stable status post laparoscopic cholecystectomy I agree with assessment and plan as outlined above by RUDY Henriquez DR Subjective Patient seen and examined in 359-1. Patient resting comfortably and eating breakfast. Pain is well controlled. Tolerating regular diet without nausea, vomiting or abdominal pain. Passing flatus but no BM yet. Denies fever, chills, headache, lightheadedness, visual changes, chest pain, palpitations, shortness of breath, dysuria or diarrhea. Primary team planning on discharge today with follow up in surgical clinic next week. Review of Systems Review of Systems: At least ten systems reviewed and negative except as noted in the HPI. Physical Exam Physical Exam: General Appearance: WD/WN, vitals as above, NAD, sitting up in bed eating breakfast, conversing easily Head: normocephalic, atraumatic Eyes: normal inspection, PERRL, conjunctivae normal, anicteric sclerae ENT: external ear and nose normal, oropharynx normal Neck: trachea midline, no thyromegaly normal visual inspection Respiratory: lungs clear to auscultation, no wheeze, rales, rhonchi. Normal in sp/exp effort, no accessory muscle use Cardiovascular: regular rate, rhythm, no murmur, normal peripheral pulses. Vessels: no JVD or carotid bruit Chest: normal inspection of chest Abdomen/GI: Surgical dressing clean, dry, intact normal bowel sounds, soft, nontender, no hepatosplenomegaly Extremities/Musculoskelatal: no cyanosis or clubbing, extremities motor strength 5/5 Neurologic: PERRL, EOMI, no dysarthria CN's II-XI intact bilaterally and moves all extremities Psychiatric: A+Ox3, euthymic affect Skin: no rashes, normal color, warm/dry Results & Data Vital Signs (Past 12 Hours) Vital Signs Temp Pulse Resp BP Pulse Ox 08/30/19 07:35 36.8 C 77 16 153/78 H 93 08/29/19 23:01 37.2 C 82 17 146/77 H 93 Laboratory Results Short CBC 08/30/19 Range/Units 05:32 WBC 9.39 (4.8-10.8) K/uL Hgb 12.6 L (14.0-18.0) g/dL Hct 36.1 L (42-52) % Plt Count 233 (130-400) K/uL BMP 08/30/19 05:32 Sodium 138 Potassium 3.7 Chloride 108 H Carbon Dioxide 27 BUN 15 Creatinine 1.14 Glucose 101 H Calcium 9.0
[2019-08-30] MEDS: PANTOprazole 40 MG TAB PO SCH (09:08)
[2019-08-30] MEDS: DOCUSATE SODIUM/SENNA 50/8.6MG TAB PO SCH (09:08)
[2019-08-30] MEDS: ATORVASTATIN 20 MG TAB PO SCH (09:08)
[2019-08-30] MEDS: HEPARIN SOD 5,000 UNIT/0.5 ML VIAL SQ SCH (09:09)
[2019-08-30] MEDS: MAGNESIUM HYDROXIDE SUSP 30 ML UDC PO SCH (09:09)
== END 2019-08-30 10:23 | disposition home or self-care (01) | DRG 854 ==
LOC: ED 13:36 → OR 18:02 → 2N 19:28 → 3W 08-28 06:50